=== PATIENT | male | born 1970 | race Caucasian/White ===

== ENCOUNTER 2017-05-02 15:17 | Emergency (ER) | payer SELFPAY ==
[~2017-05-02] VITALS: Ht 175.3 cm; Wt 130.0 kg
[2017-05-02 15:25] VITALS: BP 139/103; PULSE 107; RESP 16; TEMP 98.3; O2SAT 98
[2017-05-02] MEDS ORDERED: ACETAMINOPHEN/HYDROcodone 325 MG/5 MG TAB PO ONE (15:45)
--- NOTE | 2017-05-02 16:06 | PD ---
HPI Chief Complaint: Musculoskeletal Complaint Time Seen by Provider: 16:01 Travel History International Travel<30 days: No Contact w/Intl Traveler<30days: No Traveled to known affect area: No History of Present Illness HPI 46-year-old male that presents to the ED for evaluation of right ankle and foot injury. Patient reports that today he accidentally got his foot on a pothole and twisted it. Per patient he has pain on the lateral aspect of the ankle. He isn't sure what he believes that he had a fracture in one of his ankles but unsure which one. Patient states that it's hard to walk but able to do so. Per patient the pain is severe 8 out of 10 and gets worse with walking.. He denies any head injury or other injury. Patient states that this happened at home. Denies any cuts or any other illness. No allergies to medication. Hasn' t taken anything for this. Injury occurred today in the morning around 10:00. PFSH Past Medical History Diabetes: No Diminished Hearing: No Hypertension: No Psychiatric: No Immunizations Current: Yes Seizures: No Tetanus Vaccination: Unknown Past Surgical History Abdominal Surgery: Yes (HERNIA) Social History Alcohol Use: Yes (RARELY) Tobacco Use: Yes (OCC) Substance Use: No (PT DENIES) Allergies-Medications (Allergen,Severity, Reaction): Coded Allergies: No Known Allergies (Verified , 05/02/17) Reported Meds & Prescriptions Reported Meds & Active Scripts Active Tramadol (Tramadol HCl) 50 Mg Tab 50 Mg PO Q6H PRN Diclofenac Sodium DR (Diclofenac Sodium) 75 Mg Tabdr 75 Mg PO BID PRN Review of Systems Except as stated in HPI: all other systems reviewed are Neg Physical Exam Narrative GENERAL: SKIN: Warm and dry. HEAD: Atraumatic. Normocephalic. EYES: Pupils equal and round. No scleral icterus. No injection or drainage. ENT: No nasal bleeding or discharge. Mucous membranes pink and moist. Tongue is midline. No uvula deviation. NECK: Trachea midline. No JVD. CARDIOVASCULAR: Regular rate and rhythm. RESPIRATORY: No accessory muscle use. Clear to auscultation. Breath sounds equal bilaterally. GASTROINTESTINAL: Abdomen soft, non-tender, nondistended. Hepatic and splenic margins not palpable. MUSCULOSKELETAL: Extremities without clubbing, cyanosis, or edema. No obvious deformities. Patient has reversible pain in the right lateral malleolus. Most of the pain appears to be superior to it however. Some dorsal foot pain noted as well. 2+ pulses bilaterally. No medial malleolar tenderness to palpation. Full range of motion of toes. Good sensation bilaterally. Pain with ambulation. NEUROLOGICAL: Awake and alert. No obvious cranial nerve deficits. Motor grossly within normal limits. Five out of 5 muscle strength in the arms and legs. Normal speech. PSYCHIATRIC: Appropriate mood and affect; insight and judgment normal. Data Data Last Documented VS Vital Signs Date Time Temp Pulse Resp B/P Pulse Ox O2 Delivery O2 Flow Rate FiO2 05/02/17 15:25 98.3 107 16 139/103 98 Room Air Orders Ankle, Complete ([id number]) (05/02/17 15:36) Foot, Complete ([id number]) (05/02/17 15:36) Ice/Cold Pack (05/02/17 15:36) Acetamin-Hydrocod 325-5 Mg ([place] 5-325 (05/02/17 15:45) MDM Medical Decision Making Medical Screen Exam Complete: Yes Emergency Medical Condition: Yes Medical Record Reviewed: Yes Interpretation(s) X-ray the right ankle and foot show no sign of bony injury. Differential Diagnosis Fracture versus sprain versus strain versus contusion Narrative Course 46-year-old male that presents to the ED for evaluation of right foot pain. Patient was properly examined and was found to have signs and symptoms very consistent with appears to be right foot injury. X-rays were done. X-rays show no sign of bony injury. Likely bad sprain. We'll provide crutches as well as brace. Patient was told to follow up closely with PCP. Given prescriptions for diclofenac sodium. Ice or warm compresses. See ED worsening symptoms. Diagnosis Primary Impression: Right ankle sprain Qualified Code: S93.401A - Sprain of right ankle, unspecified ligament, initial encounter Patient Instructions: General Instructions Additional Instructions: Take medications as prescribed. Follow-up with PCP. See ED for any worsening symptoms. Do not drink or drive while taking pain medication. Apply ice or heat as needed for pain Med/Other Pt SpecificInfo: Prescription(s) given Scripts Tramadol 50 Mg Tab50 Mg PO Q6H PRN (PAIN) #10 TAB Ref 0 Prov:Steph Manuel DO 05/02/[address] 75 Mg Tabdr75 Mg PO BID PRN (PAIN SCALE 1 TO 10) #20 TAB Prov:ManuelJadaSteph DO 05/02/17 Disposition: 01 DISCHARGE HOME Condition: Stable Jacinto Starr May 02, 2017 16:05
--- NOTE | 2017-05-02 16:36 | RADRPT ---
EXAM DATE/TIME: 05/02/2017 16:02 [facility] COMPARISON: No previous studies available for comparison. INDICATIONS : Right ankle pain on the anterior lateral side after twisting ankle in a hole. MEDICAL HISTORY : None. SURGICAL HISTORY : None. ENCOUNTER: Initial ACUITY: 1 day PAIN SCORE: 10/10 LOCATION: Right ankle FINDINGS: No definite fractures, or dislocations are identified. No definite lytic or sclerotic lesion is seen . Soft tissue swelling is identified. Calcaneal spur is present at the attachment site of the plantar aponeurosis. CONCLUSION: No definite fracture is seen for technique. KKali Thomas MD on May 02, 2017 at 16:34 Board Certified Radiologist. This report was verified electronically.
--- NOTE | 2017-05-02 16:36 | RADRPT ---
EXAM DATE/TIME: 05/02/2017 15:59 [facility] COMPARISON: No previous studies available for comparison. INDICATIONS : Right foot pain on anterior lateral side after twisting ankle in a hole. MEDICAL HISTORY : None. SURGICAL HISTORY : None. ENCOUNTER: Initial ACUITY: 1 day PAIN SCORE: 10/10 LOCATION: Right foot FINDINGS: No definite fractures, or dislocations are identified. No definite lytic or sclerotic lesion is seen . Calcaneal spur is present at the attachment site of the plantar aponeurosis. CONCLUSION: Unremarkable study except for calcaneal spur. Katia Thomas MD on May 02, 2017 at 16:33 Board Certified Radiologist. This report was verified electronically.
[2017-05-02] MEDS ORDERED: TRAM50TA PO (16:41)
[2017-05-02] MEDS ORDERED: DICL75TA PO (16:41)
[2017-05-02] MEDS ORDERED: KETOROLAC TROMETHAMINE 60 MG/2 ML (IM) VIAL IM ONE (17:00)
== END 2017-05-02 17:31 | disposition home or self-care (01) ==
LOC: PHED 15:17 → PHEFT 17:31
DX: S93.401A Sprain of unspecified ligament of right ankle, initial encounter (principal); W17.2XXA Fall into hole, initial encounter
CPT/HCPCS: 73610; 73630; 96372; 99284; J1885

== ENCOUNTER 2017-09-11 07:49 | Emergency (ER) | payer SELFPAY ==
[~2017-09-11] VITALS: Ht 170.2 cm; Wt 126.6 kg
[~2017-09-11 07:49] MED LIST: DICL75TA PO; TRAM50TA PO
[2017-09-11 07:53] VITALS: BP 176/98; PULSE 100; RESP 16; TEMP 98.7; O2SAT 92
[2017-09-11] MEDS ORDERED: METF500T PO (14:08)
== END 2017-09-11 09:15 | disposition left against medical advice (07) ==
LOC: PHED 07:49
DX: R35.0 Frequency of micturition (principal)
CPT/HCPCS: 99281

== ENCOUNTER 2017-09-11 09:15 | Emergency (ER) | payer SELFPAY ==
[~2017-09-11] VITALS: Ht 172.7 cm; Wt 125.5 kg
[2017-09-11 09:16] VITALS: BP 180/99; PULSE 102; RESP 20; TEMP 98.4; O2SAT 95
--- NOTE | 2017-09-11 09:23 | PD ---
HPI Chief Complaint: hyperglycemia Time Seen by Provider: 09:17 Travel History International Travel<30 days: No Contact w/Intl Traveler<30days: No History of Present Illness HPI Patient is a 47-year-old smoker presents emergency department for evaluation of high blood sugar. Patient states that for the past few months but last month especially he's been having some blurred vision as well as Pedialyte and very thirsty. At his sugar checked one time an outside facility and it was in excess of 400. He is not a known diabetic. Denies any chest pain shortness of breath. His ex- states that she is heard him complain of shortness of breath occasionally and wonders if he might have undiagnosed CHF as well. No fevers no chest pain no abdominal pain no nausea vomiting. PFSH Past Medical History Diabetes: No Diminished Hearing: No Hypertension: No Psychiatric: No Immunizations Current: Yes Seizures: No Past Surgical History Abdominal Surgery: Yes (HERNIA) Social History Alcohol Use: Yes (RARELY) Tobacco Use: Yes (OCC) Substance Use: No (PT DENIES) Allergies-Medications (Allergen,Severity, Reaction): Coded Allergies: No Known Allergies (Verified Adverse Reaction, Unknown, 09/11/17) Reported Meds & Prescriptions Reported Meds & Active Scripts Active Metformin (Metformin HCl) 500 Mg Tab 500 Mg PO BIDPC Review of Systems Except as stated in HPI: all other systems reviewed are Neg Physical Exam Narrative GENERAL: Well-developed well-nourished no obvious distress. SKIN: Focused skin assessment warm/dry. HEAD: Atraumatic. Normocephalic. EYES: Pupils equal and round. No scleral icterus. No injection or drainage. ENT: No nasal bleeding or discharge. Mucous membranes pink and dry. NECK: Trachea midline. No JVD. CARDIOVASCULAR: Regular rate and rhythm. No murmur appreciated. RESPIRATORY: No accessory muscle use. Clear to auscultation. Breath sounds equal bilaterally. GASTROINTESTINAL: Abdomen soft, non-tender, nondistended. Hepatic and splenic margins not palpable. MUSCULOSKELETAL: No obvious deformities. No clubbing. No cyanosis. No edema. NEUROLOGICAL: Awake and alert. No obvious cranial nerve deficits. Motor grossly within normal limits. Normal speech. PSYCHIATRIC: Appropriate mood and affect; insight and judgment normal. Data Data Last Documented VS Vital Signs Date Time Temp Pulse Resp B/P (MAP) Pulse Ox O2 Delivery O2 Flow Rate FiO2 09/11/17 13:55 09/11/17 09:38 101 16 97 Room Air 09/11/17 09:16 98.4 Orders Orders Complete Blood Count With Diff (09/11/17 09:17) Comprehensive Metabolic Panel (09/11/17 09:17) Magnesium (Mg) (09/11/17 09:17) Phosphorus (Po4) (09/11/17 09:17) Beta Hydroxybutyrate (Acetone) (09/11/17 09:17) Osmolality,Serum (09/11/17 09:17) Lactic Acid (09/11/17 09:17) Urinalysis - C+S If Indicated (09/11/17 09:17) Ecg Monitoring (09/11/17 09:17) Iv Access Insert/Monitor (09/11/17 09:17) Oximetry (09/11/17 09:17) NPO (09/11/17 09:17) Sodium Chlor 0.9% 1000 Ml Inj (Ns 1000 M (09/11/17 09:47) Sodium Chloride 0.9% Flush (Ns Flush) (09/11/17 09:30) Troponin I (09/11/17 09:17) Lipase (09/11/17 09:17) Electrocardiogram (09/11/17 ) Chest, Single Ap (09/11/17 ) Resp Blood Gas Venous (09/11/17 ) Blood Gas Venous (Vbg) (09/11/17 09:24) Nicotine 21 Mg Patch.24 Hr (Habitrol 21 (09/11/17 10:45) Bedside Glucose MARKELL.CSUGAR (09/11/17 11:58) Sodium Chlor 0.9% 1000 Ml Inj (Ns 1000 M (09/11/17 12:15) Insulin Human Regular Inj (Novolin R Inj (09/11/17 12:15) B-Type Natriuretic Peptide (09/11/17 13:06) Insulin Human Regular Inj (Novolin R Inj (09/11/17 13:15) Ed Discharge Order (09/11/17 14:29) Labs Laboratory Tests Test 09/11/17 09:24 09/11/17 09:38 09/11/17 10:27 Blood Gas Puncture Site Blood Gas Patient Temperature 98.6 Venous Blood pH 7.40 Venous Blood Partial Pressure CO2 41 mmHg Venous Blood Partial Pressure O2 55 mmHg Venous Blood HCO3 25 mmol/L Venous Blood Oxygen Saturation 80 % Venous Blood Oxygen Content 19.1 Vol % Venous Blood Base Excess 0.6 mmol/L Blood Gas Inspired Oxygen 21 % White Blood Count 11.0 TH/MM3 Red Blood Count 5.14 MIL/MM3 Hemoglobin 17.2 GM/DL Hematocrit 49.6 % Mean Corpuscular Volume 96.5 FL Mean Corpuscular Hemoglobin 33.5 PG Mean Corpuscular Hemoglobin Concent 34.7 % Red Cell Distribution Width 13.3 % Platelet Count 256 TH/MM3 Mean Platelet Volume 9.4 FL Neutrophils (%) (Auto) 64.3 % Lymphocytes (%) (Auto) 27.2 % Monocytes (%) (Auto) 6.4 % Eosinophils (%) (Auto) 1.5 % Basophils (%) (Auto) 0.6 % Neutrophils # (Auto) 7.0 TH/MM3 Lymphocytes # (Auto) 3.0 TH/MM3 Monocytes # (Auto) 0.7 TH/MM3 Eosinophils # (Auto) 0.2 TH/MM3 Basophils # (Auto) 0.1 TH/MM3 CBC Comment DIFF FINAL Differential Comment Blood Urea Nitrogen 18 MG/DL Creatinine 1.03 MG/DL Random Glucose 631 MG/DL Total Protein 7.6 GM/DL Albumin 3.6 GM/DL Calcium Level 8.7 MG/DL Phosphorus Level 3.9 MG/DL Magnesium Level 2.1 MG/DL Alkaline Phosphatase 167 U/L Aspartate Amino Transf (AST/SGOT) 46 U/L Alanine Aminotransferase (ALT/SGPT) 51 U/L Total Bilirubin 0.6 MG/DL Sodium Level 132 MEQ/L Potassium Level 4.8 MEQ/L Chloride Level 97 MEQ/L Carbon Dioxide Level 24.4 MEQ/L Anion Gap 11 MEQ/L Estimat Glomerular Filtration Rate 78 ML/MIN Serum Osmolality 310 MOSM/KG Lactic Acid Level 1.3 mmol/L Troponin I LESS THAN 0.02 NG/ML B-Type Natriuretic Peptide 11 PG/ML Lipase 272 U/L B-Hydroxybutyrate 1.45 MMOL/L Urine Color LIGHT-YELLOW Urine Turbidity CLEAR Urine pH 5.0 Urine Specific Sikes 1.030 Urine Protein NEG mg/dL Urine Glucose (UA) 1000 mg/dL Urine Ketones 40 mg/dL Urine Occult Blood NEG Urine Nitrite NEG Urine Bilirubin NEG Urine Urobilinogen LESS THAN 2.0 MG/DL Urine Leukocyte Esterase NEG Urine RBC LESS THAN 1 /hpf Urine WBC LESS THAN 1 /hpf Microscopic Urinalysis Comment CULT NOT INDICATED MDM Medical Decision Making Medical Screen Exam Complete: Yes Emergency Medical Condition: Yes Differential Diagnosis Hyperglycemia, HHS, DKA, new onset diabetes. Narrative Course Patient roomed emergency department, he is obese, suspect that he's had bloating diabetes has gone undiagnosed for some time. Sugar is in excess of 600 on arrival, no evidence of DKA he does have some ketosis without acidosis. A BNP was sent at his ex-'s request, sugar was corrected with 2 L normal saline as well as a total of 15 units of IV insulin and he was highly recommended to admission to hospital. After counseling of the risks and consequences of signing out AMA including the complications of diabetes including stroke slipping into a coma for DKA impotence loss of vision heart attack the patient verbalized understanding and wished to sign out AMA as he has to work in the morning. He will be started on metformin and the patient left hastily without discharge instructions. He lives with his ex- and she was given the prescription of metformin. Diagnosis Primary Impression: Hyperglycemia Med/Other Pt SpecificInfo: Prescription(s) given Scripts Metformin (Metformin) 500 Mg Tab 500 MG PO BIDPC for Blood Sugar Management, #60 TAB 0 Refills Prov: Tani Bautista MD 09/11/17 Disposition: 07 AGAINST MEDICAL ADVICE Condition: Stable Tani Bautista MD Sep 11, 2017 09:23
[2017-09-11] MEDS ORDERED: SODIUM CHLORIDE 0.9% FLUSH 10 ML FLUSH IVF PRN (09:30)
[2017-09-11 09:33] VITALS: PULSE 103; RESP 16; O2SAT 97
[2017-09-11 09:38] VITALS: BP 138/84; PULSE 101; RESP 16; O2SAT 97
[2017-09-11 09:47] LABS: BLOOD GAS VENOUS BASE EXCESS 0.6 mmol/L (-2-2); BLOOD GAS VENOUS HCO3 25 mmol/L (22-26); BLOOD GAS VENOUS O2 CONTENT 19.1 Vol % (9.0-17.0); BLOOD GAS VENOUS O2 HGB SAT 80 % (70-76); BLOOD GAS VENOUS PCO2 41 mmHg (44-48); BLOOD GAS VENOUS PO2 55 mmHg (35-40); TEMP CORR TO 98.6
[2017-09-11] MEDS ORDERED: SODIUM CHLOR 0.9% 1000 ML INJ 1,000 ML IV ONE ×2 (09:47→12:15)
[2017-09-11 09:48] LABS: CRITICAL VALUE NO; FIO2 21 %; STAT YES
--- NOTE | 2017-09-11 10:08 | RADRPT ---
EXAM DATE/TIME: 09/11/2017 09:45 [facility] COMPARISON: No previous studies available for comparison. INDICATIONS : Short of breath, high blood sugar. MEDICAL HISTORY : Diabetes mellitus type I. SURGICAL HISTORY : None. ENCOUNTER: Initial ACUITY: 1 day PAIN SCORE: 0/10 LOCATION: Bilateral chest FINDINGS: A single view of the chest demonstrates the lungs to be symmetrically aerated without evidence of mas s, infiltrate or effusion. The cardiomediastinal contours are unremarkable. Osseous structures are intact. CONCLUSION: Normal examination. Hu Leon MD on September 11, 2017 at 10:06 Board Certified Radiologist. This report was verified electronically.
[2017-09-11 10:14] LABS: BASOPHIL # 0.1 TH/MM3 (0-0.2); BASOPHIL % 0.6 % (0.0-2.0); EOSINOPHIL # 0.2 TH/MM3 (0-0.4); EOSINOPHIL % 1.5 % (0.0-4.0); HEMATOCRIT 49.6 % (39.0-51.0); HEMO FLAGS DIFF FINAL; LYMPH % 27.2 % (9.0-44.0); MEAN CELL VOLUME 96.5 FL (80.0-100.0); MEAN CORPUSCULAR HEMOGLOBIN 33.5 PG (27.0-34.0); MEAN CORPUSCULAR HGB CONC 34.7 % (32.0-36.0); MONO % 6.4 % (0.0-8.0); NEUT % 64.3 % (16.0-70.0); PLATELET COUNT 256 TH/MM3 (150-450); RED BLOOD COUNT 5.14 MIL/MM3 (4.50-5.90); RED CELL DISTRIBUTION WIDTH 13.3 % (11.6-17.2)
[2017-09-11 10:36] LABS: ANION GAP 11 MEQ/L (5-15); BICARBONATE 24.4 MEQ/L (21.0-32.0); BLOOD UREA NITROGEN 18 MG/DL (7-18); CHLORIDE 97 MEQ/L (98-107); GLOMERULAR FILTRATION RATE 78 ML/MIN (>89); MAGNESIUM 2.1 MG/DL (1.5-2.5); SODIUM (NA) 132 MEQ/L (136-145)
[2017-09-11 10:37] LABS: AST (GOT) 46 U/L (15-37); POTASSIUM 4.8 MEQ/L (3.5-5.1)
[2017-09-11 10:40] LABS: BLOOD, URINE NEG (NEG); GLUCOSE,URINE 1000 mg/dL (NEG); KETONE, URINE 40 mg/dL (NEG); NITRITE,URINE NEG (NEG); URINE COLOR LIGHT-YELLOW (YELLW/STRAW)
[2017-09-11 10:42] LABS: COMMENT (UR) CULT NOT INDICATED; CULTURE IF INDICATED CULT NOT INDICATED
[2017-09-11] MEDS ORDERED: NICOTINE 21 MG/24 HR PATCH T-DERMAL ONE (10:45)
[2017-09-11 10:59] LABS: ALKALINE PHOSPHATASE 167 U/L (45-117); BETA-HYDROXYBUTYRATE 1.45 MMOL/L (0.00-0.39); TOTAL BILIRUBIN ADULT 0.6 MG/DL (0.2-1.0)
[2017-09-11 12:03] LABS: ALT (GPT) 51 U/L (12-78)
[2017-09-11] MEDS ORDERED: INSULIN HUMAN REGULAR 1,000 UNITS/10 ML VIAL IV PUSH ONE ×2 (12:15→13:15)
[2017-09-11] MEDS ORDERED: METF500T PO (14:08)
--- NOTE | 2017-09-13 08:45 | EKG ---
Date Performed: 09/11/2017 Time Performed: 09:45:42 PTAGE: 47 years EKG: Sinus rhythm POSSIBLE INFERIOR MYOCARDIAL INFARCTION ABNORMAL ECG PREVIOUS TRACING : 10/11/2015 22.06 DOCTOR: Hu Henderson Interpretating Date/Time 09/13/2017 08:43:53
== END 2017-09-11 14:53 | disposition left against medical advice (07) ==
LOC: NEPE 09:15
DX: E10.65 Type 1 diabetes mellitus with hyperglycemia (principal); R94.31 Abnormal electrocardiogram [ECG] [EKG]; R06.02 Shortness of breath; H53.8 Other visual disturbances; Z79.84 Long term (current) use of oral hypoglycemic drugs; Z72.0 Tobacco use
CPT/HCPCS: 71010; 80053; 81001; 82010; 82805; 83605; 83690; 83735; 83880; 83930; 84100; 84484; 85025; 93005; 96361; 96374; 96376; 99285; J1815; J7030